=== PATIENT | male | born 1935 | race Caucasian/White ===

== ENCOUNTER 2023-04-29 20:53 | Emergency (ER) | payer MEDICARE, OTHER ==
[~2023-04-29] VITALS: Ht 177.8 cm; Wt 86.1 kg
[~2023-04-29 20:53] MED LIST: ACET-812 PO; BIMA2.5D EACHEYE; OMEP20CA15 PO
[2023-04-30] MEDS: acetaminophen 1,000mg/100ml IV 100 ML IV STA (00:04)
[2023-04-30 00:08] VITALS: TEMP 98.1
[2023-04-30] MEDS: ondansetron/PF 4mg/2ml inj IV ONE (03:39)
[2023-04-30] MEDS: HYDROmorphone inj. 0.5 MG/0.5 ML DISP.SYRIN IV PRN (03:40)
[2023-04-30] MEDS ORDERED: BACI1PAC7 TOP (05:58)
[2023-04-30] MEDS ORDERED: TRAM50TA2 PO (05:58)
[2023-04-30] MEDS ORDERED: BACI3.5O2 OP (06:02)
[2023-04-30 06:35] VITALS: BP 137/74; PULSE 77; O2SAT 98
[2023-04-30] MEDS: bacitracin 15gm ointment TP ONE (08:08)
[2023-04-30 11:38] VITALS: RESP 18
[2023-04-30] MEDS: HYDROcodone/acetaminophen 10/325mg tab PO ONE (11:38)
== END 2023-04-30 13:00 | disposition home or self-care (01) ==
LOC: ER 20:54
DX: S82.101A Unspecified fracture of upper end of right tibia, initial encounter for closed fracture (principal); I10 Essential (primary) hypertension; W19.XXXA Unspecified fall, initial encounter; Y93.89 Activity, other specified; Y92.89 Other specified places as the place of occurrence of the external cause; Y99.8 Other external cause status
CPT/HCPCS: 29505; 71045; 73030; 73521; 73552; 73560; 73600; 73620; 96374; 96375; 99285; J0131; J1170; J2405; A4615; A6258